=== PATIENT | male | born 1990 | race Two or more races ===

== ENCOUNTER 2023-01-17 11:52 | Emergency (ER) | payer OTHER ==
[~2023-01-17] VITALS: Ht 177.8 cm; Wt 79.4 kg
== END 2023-01-17 15:35 | disposition home or self-care (01) ==
LOC: ER 11:52
DX: M54.59 Other low back pain (principal)

== ENCOUNTER → 2024-10-13 | Emergency (ER) | payer OTHER ==
[~2024-10-13] VITALS: Ht 172.7 cm; Wt 86.2 kg
[~2024-10-13] MED LIST: AZITHROMYCIN250 MG PO; BACLOFEN10 MG PO; FLONASE ALLERG9.9 ML NASAL
[2024-10-13 10:15] VITALS: BP 130/78; O2SAT 96
[2024-10-13 11:09] LABS: HEMATOCRIT 43.8 % (39.0-48.0); HEMOGLOBIN 14.8 g/dL (13-16.00); MEAN CELL VOLUME 88.4 fL (80.0-100.00); MEAN CORPUSCULAR HEMOGLOBIN 29.8 pg (27.00-32.0); MEAN CORPUSCULAR HGB CONC 33.7 g/dl (32.0-36.0); PLATELET COUNT 297 K/uL (150-450); RED BLOOD COUNT 4.96 M/uL (4.00-6.00); RED CELL DISTRIBUTION WIDTH 12.3 % (11.5-14.5)
[2024-10-13 11:30] LABS: CALCIUM 9.4 mg/dL (8.5-10.1); CREATININE SERUM 0.96 mg/dL (0.70-1.30); GFR 89.13; POTASSIUM 4.29 mEq/L (3.5-5.1)
== END | disposition home or self-care (01) ==
LOC: ER 09:57
PROVIDERS: General Practice
DX: J32.9 Chronic sinusitis, unspecified (principal); M54.50 Low back pain, unspecified; M51.369 Other intervertebral disc degeneration, lumbar region without mention of lumbar back pain or lower extremity pain; Z88.8 Allergy status to other drugs, medicaments and biological substances

== ENCOUNTER 2024-10-18 11:06 | Outpatient (CLI) | payer OTHER | END 2024-10-18 11:10 | disposition home or self-care (01) | LOC: MRI 11:06 | DX: M54.50 Low back pain, unspecified (principal) | CPT/HCPCS: 72148 ==

== ENCOUNTER 2025-01-10 11:28 | Emergency (ER) | payer OTHER ==
[~2025-01-10] VITALS: Ht 172.7 cm; Wt 83.9 kg
[2025-01-10] MEDS ORDERED: CETIRIZINE HCL 5MG/5ML BLIST.PACK PO ONE (12:27)
[2025-01-10] MEDS ORDERED: BUTALB/ACETAMINOPHEN/CAFFEINE 1 TAB TABLET PO ONE ×2 (12:27→12:30)
[2025-01-10] MEDS ORDERED: FAMOTIDINE/PF 20 MG/2 ML VIAL ONE (12:28)
[2025-01-10] MEDS ORDERED: CETIRIZINE HCL 5 MG/5 ML ML PO ONE (12:30)
[2025-01-10] MEDS ORDERED: 0.9 % SODIUM CHLORIDE 1,000 ML IV ONE (12:30)
[2025-01-10] MEDS ORDERED: FAMOtidine 10 MG/ML (4ML VIAL) IV ONE (12:30)
[2025-01-10 12:54] LABS: EOS # 0.04 (0.04-0.54); EOS % 0.5 % (0.7-7.0); HEMATOCRIT 42.7 % (40.1-51.0); HEMOGLOBIN 14.6 g/dL (13.7-17.5); LYMPH # 0.77 (1.18-3.74); LYMPH % 10.1 % (19.3-53.1); MEAN CORPUSCULAR HEMOGLOBIN 29.7 pg (25.6-32.2); MONO # 0.82 (0.24-0.82); MONO % 10.7 % (4.7-12.5); NEUT # 5.91 (1.56-6.13); NEUT % 77.3 % (34.0-71.1); PLATELET COUNT 284 K/uL (163-369); RED BLOOD COUNT 4.92 M/uL (4.63-6.08); RED CELL DISTRIBUTION WIDTH 11.9 % (11.6-14.4)
[2025-01-10 13:12] LABS: INR 1.02; PARTIAL THROMBOPLASTIN TIME 24.8 SECONDS (22.0-34.0); PROTHROMBIN TIME 11.1 SECONDS (9.0-11.5)
[2025-01-10 13:19] LABS: BILIRUBIN TOTAL 0.63 mg/dL (0.3-1.2); CREATININE SERUM 1.2 mg/dL (0.70-1.30); GFR 68.9; POTASSIUM 4.04 mEq/L (3.5-5.1)
[2025-01-10 13:20] LABS: COVID-19 AG NEGATIVE (NEGATIVE)
[2025-01-10 13:22] LABS: INFLUENZA A AG POSITIVE (NEGATIVE); INFLUENZA B AG NEGATIVE (NEGATIVE)
[2025-01-10 13:31] LABS: URINE APPEARANCE Clear; URINE BILIRRUBIN Negative (NEGATIVE); URINE BLOOD Negative; URINE COLOR Yellow; URINE GLUCOSE Negative (NEGATIVE); URINE KETONE Trace (NEGATIVE); URINE LEUKOCYTE Negative; URINE NITRATE Negative; URINE PROTEIN Negative (NEGATIVE)
[2025-01-10 13:35] LABS: URINE EPITHELIAL CELLS 1.7 uL (0.0-38.8); URINE RBC 3.8 uL (0.0-20.8)
[2025-01-10 13:43] LABS: URINE BACTERIA 0 uL (0.0-1933); URINE WBC 1.7 uL (0.0-23.2)
[2025-01-10] MEDS ORDERED: PEPCID AC20 MG PO (13:46)
[2025-01-10] MEDS ORDERED: OSEL75CA PO (13:46)
== END 2025-01-10 14:34 | disposition home or self-care (01) ==
LOC: ER 11:28
PROVIDERS: General Practice
DX: J10.1 Influenza due to other identified influenza virus with other respiratory manifestations (principal); Z20.822 Contact with and (suspected) exposure to COVID-19; Z88.8 Allergy status to other drugs, medicaments and biological substances